=== PATIENT | female | born 1985 | race Caucasian/White ===

== ENCOUNTER 2023-08-21 13:28 | Emergency (ER) | payer OTHER ==
[2023-08-21 13:40] VITALS: BP 155/92; PULSE 54; RESP 18; TEMP 99.1; BMI 26.3
[2023-08-21 14:06] LABS: HEMATOCRIT 38.7 % (32.4-45.2); HEMOGLOBIN 13.3 G/dL (10.7-15.3); MCH 30.8 pg (25.7-33.7); MCHC 34.4 g/dl (32.0-36.0); MEAN CELL VOLUME 89.5 fl (80-96); MEAN PLT VOLUME 8.7 fl (7.5-11.1); PLATELET COUNT 274.4 10^3/uL (134-434); RBC 4.32 10^6/uL (3.60-5.2); RDW 13.9 % (11.6-15.6)
[2023-08-21 14:13] LABS: PLATELET ESTIMATE ADEQUATE
[2023-08-21 14:24] LABS: ALBUMIN 4.3 g/dl (3.4-5.0); BILIRUBIN,TOTAL 0.4 mg/dl (0.2-1); CALCIUM 9.3 mg/dl (8.5-10.1); CREATININE 0.6 mg/dl (0.6-1.3); TOT PROT 7.1 g/dl (6.4-8.2)
== END 2023-08-21 16:00 | disposition home or self-care (01) ==
LOC: FER 13:28
DX: O20.0 Threatened abortion (principal); Z3A.08 8 weeks gestation of pregnancy
CPT/HCPCS: 36415; 76817-TC; 80053; 81003; 81015; 84702; 85027; 86850; 86900; 86901; 99284-25